=== PATIENT | female | born 1930 | race African-American/Black ===

== ENCOUNTER 2016-12-28 20:26 | Inpatient (IN) | payer MEDICARE, MEDICAID ==
[~2016-12-28] VITALS: Ht 167.6 cm; Wt 44.9 kg
[~2016-12-28 20:26] MED LIST: ACET-3161 PO; ALBU6.7H2 IH; AMLO10TA4; AZIT500T2 PO; COR25; GUAI10SY2 GT; PRAV40TA; TOLT4CAP PO; VALS160T2
[2016-12-28] MEDS ORDERED: ONDANSETRON HCL 4MG/2ML VIAL IV STA (21:39)
[2016-12-28] MEDS ORDERED: MORPHINE SULFATE 4 MG/ML CPJ (NOT FOR IM USE) IV STA (21:39)
[2016-12-28] MEDS ORDERED: MECLIZINE 25MG TABLET PO ONE (21:45)
[2016-12-28 21:55] LABS: CLARITY URINE CLEAR (CLEAR); COLOR URINE YELLOW (YELLOW); GLUCOSE URINE NEGATIVE (NEGATIVE); KETONES URINE NEGATIVE (NEGATIVE); LEUKOCYTE ESTERASE URINE TRACE (NEGATIVE); NITRITE URINE NEGATIVE (NEGATIVE); OCCULT BLOOD URINE 1+ (NEGATIVE); PH URINE 6.5 (4.5-8.0); PROTEIN URINE NEGATIVE (NEGATIVE); SPECIFIC GRAVITY URINE 1.008 (1.005-1.030); UROBILINOGEN URINE 0.2 E.U./dL (0.2-1.0)
[2016-12-28 22:32] LABS: EOSINOPHILS % 0.8 % (0.0-5.0); HEMATOCRIT. 38.1 % (36.0-48.0); HEMOGLOBIN. 12.7 g/dL (12.0-16.0); LYMPHOCYTES % 46.2 % (20.0-50.0); MEAN CORPUSCULAR HEMOGLOBIN 31.2 pg (28.0-32.0); MEAN CORPUSCULAR VOLUME 93.9 fL (81.0-99.0); MEAN PLATELET VOLUME 8.1 fl (7.4-10.4); MONOCYTES % 8.3 % (2.0-8.0); NEUTROPHILS % 43.7 % (40.0-76.0); PLATELET 252 x1000/uL (130-400); RED BLOOD CELL COUNT 4.06 mill/uL (4.2-5.4); RED CELL DISTRIBUTION WIDTH 13.7 % (11.6-14.6)
[2016-12-28 22:40] LABS: D-DIMER 1.71 mg/L FEU (<0.50); INR 1.1; PROTHROMBIN TIME 11.9 sec (9.4-11.6)
[2016-12-28 22:46] LABS: CARBON DIOXIDE 33 mEq/L (21-32); CHLORIDE 104 mEq/L (98-107); TROPONIN I < 0.02 ng/mL (0.00-0.04)
[2016-12-29] MEDS ORDERED: PIPERACILLIN/TAZ 3.375G PREMIX 50 ML IV ONE (00:15)
[2016-12-29] MEDS ORDERED: METRONIDAZOLE 500 MG PREMIX 100 ML IV ONE (00:15)
[2016-12-29 00:35] VITALS: BP 155/65
[2016-12-29] MEDS ORDERED: SODIUM CHLORIDE 0.9% 1,000 ML IV SCH (03:15)
[2016-12-29] MEDS ORDERED: AMLO10TA4 PO (03:54)
[2016-12-29] MEDS ORDERED: ACET-3161 PO (03:57)
[2016-12-29] MEDS ORDERED: ONDANSETRON HCL 4MG/2ML VIAL IV PRN ×2 (04:00→07:45)
[2016-12-29] MEDS ORDERED: LANS15CA12 PO (04:11)
[2016-12-29] MEDS ORDERED: TRAZ-129 PO (04:13)
[2016-12-29] MEDS ORDERED: FOLIC ACID 1 MG,THIAMINE 100 MG,MVI-12 10 ML in DEXTROSE 5% WATER 1000 ML IV SCH ×4 (05:00)
[2016-12-29 05:11] VITALS: BP 141/61
[2016-12-29] MEDS: AMPICILLIN SOD/SULBACTAM NA 1.5 G in SODIUM CHLORIDE 0.9% 50 ML IV SCH ×4 (06:44→23:33)
[2016-12-29] MEDS ORDERED: CLONIDINE 0.1MG TABLET PO PRN (07:45)
[2016-12-29] MEDS ORDERED: DOCUSATE SODIUM 100MG CAPSULE PO PRN (07:45)
[2016-12-29] MEDS ORDERED: MAGNESIUM/ALUMINUM HYDROXIDE/SIMETHICONE 30ML UDC PO PRN (07:45)
[2016-12-29 08:03] VITALS: BP 130/60
[2016-12-29] MEDS ORDERED: MORPHINE SULFATE 2 MG/ML CPJ (NOT FOR IM USE) IV NR (08:08)
[2016-12-29] MEDS ORDERED: NALOXONE HCL 0.4 MG/ML 1ML VIAL IV PRN (08:15)
[2016-12-29] MEDS: AMLODIPINE 10MG TABLET PO SCH (08:27)
[2016-12-29] MEDS: CALCIUM CARBONATE/VITAMIN D3 500MG TABLET PO SCH (08:29)
[2016-12-29] MEDS: ENOXAPARIN 40MG/0.4ML SYR SUBCUT SCH (08:30)
[2016-12-29] MEDS: LACTOBACILLUS GG CAPSULE PO SCH (11:38)
[2016-12-29] MEDS: FLUTICASONE PROPIONATE 50MCG/SPRAY BOTTLE BOTHNSTRLS SCH ×2 (11:38→21:54)
[2016-12-29 11:54] VITALS: BP 142/56
[2016-12-29] MEDS: IPRATROPIUM/ALBUTEROL 0.5-3(2.5)MG/3ML NEB HHN SCH ×3 (12:45→20:15)
[2016-12-29 15:24] LABS: CREATINE KINASE MB FRACTION 1.5 ng/mL (0.5-3.6); TROPONIN I < 0.02 ng/mL (0.00-0.04)
[2016-12-29 15:47] VITALS: BP 128/52
[2016-12-29] MEDS: MORPHINE SULFATE 2 MG/ML CPJ (NOT FOR IM USE) IV PRN (17:40)
[2016-12-29 20:00] VITALS: BP 115/52
[2016-12-29 23:09] LABS: TROPONIN I < 0.02 ng/mL (0.00-0.04)
[2016-12-30] VITALS: BP 125/49
[2016-12-30] MEDS: IPRATROPIUM/ALBUTEROL 0.5-3(2.5)MG/3ML NEB HHN SCH ×6 (01:40→20:23)
[2016-12-30 04:00] VITALS: BP 107/47
[2016-12-30] MEDS ORDERED: FOLIC ACID 1 MG, THIAMINE HCL 100 MG, MVI, ADULT NO.1 10 ML in DEXTROSE 5% WATER 1,000 ML IV SCH ×4 (05:00)
[2016-12-30] MEDS: AMPICILLIN SOD/SULBACTAM NA 1.5 G in SODIUM CHLORIDE 0.9% 50 ML IV SCH ×4 (05:46→23:44)
[2016-12-30 06:36] LABS: BASOPHILS % 0.8 % (0.0-2.0); EOSINOPHILS % 1.1 % (0.0-5.0); HEMATOCRIT. 35.5 % (36.0-48.0); HEMOGLOBIN. 11.8 g/dL (12.0-16.0); LYMPHOCYTES % 44.1 % (20.0-50.0); MEAN CORPUSCULAR HEMOGLOBIN 31.3 pg (28.0-32.0); MEAN CORPUSCULAR VOLUME 94.4 fL (81.0-99.0); MEAN PLATELET VOLUME 8.3 fl (7.4-10.4); MONOCYTES % 12.2 % (2.0-8.0); NEUTROPHILS % 41.8 % (40.0-76.0); PLATELET 244 x1000/uL (130-400); RED BLOOD CELL COUNT 3.76 mill/uL (4.2-5.4); RED CELL DISTRIBUTION WIDTH 13.8 % (11.6-14.6)
[2016-12-30 06:52] LABS: CHLORIDE 100 mEq/L (98-107)
[2016-12-30 07:00] LABS: CARBON DIOXIDE 34 mEq/L (21-32)
[2016-12-30] MEDS: FLUTICASONE PROPIONATE 50MCG/SPRAY BOTTLE BOTHNSTRLS SCH ×2 (09:00→21:08)
[2016-12-30] MEDS: ENOXAPARIN 40MG/0.4ML SYR SUBCUT SCH (09:00)
[2016-12-30] MEDS: CALCIUM CARBONATE/VITAMIN D3 500MG TABLET PO SCH (09:00)
[2016-12-30] MEDS: LACTOBACILLUS GG CAPSULE PO SCH (09:00)
[2016-12-30] MEDS: AMLODIPINE 10MG TABLET PO SCH (09:00)
[2016-12-30 12:00] VITALS: BP 141/60
[2016-12-30] MEDS: MORPHINE SULFATE 2 MG/ML CPJ (NOT FOR IM USE) IV PRN ×2 (12:34→21:48)
[2016-12-30 16:00] VITALS: BP 137/60
[2016-12-30 20:00] VITALS: BP 120/53
[2016-12-30] MEDS ORDERED: POTASSIUM CHLORIDE 20MEQ TABLET SR PO NR (20:00)
[2016-12-30] MEDS: TRAZODONE HCL 50MG TABLET PO SCH (21:08)
[2016-12-31] VITALS: BP 104/40
[2016-12-31] MEDS: IPRATROPIUM/ALBUTEROL 0.5-3(2.5)MG/3ML NEB HHN SCH ×6 (00:07→20:18)
[2016-12-31 04:12] VITALS: BP 124/53
[2016-12-31] MEDS: AMPICILLIN SOD/SULBACTAM NA 1.5 G in SODIUM CHLORIDE 0.9% 50 ML IV SCH ×3 (05:08→17:15)
[2016-12-31 06:29] LABS: BASOPHILS % 0.8 % (0.0-2.0); EOSINOPHILS % 1.2 % (0.0-5.0); HEMATOCRIT. 34.8 % (36.0-48.0); LYMPHOCYTES % 29.6 % (20.0-50.0); MEAN CORPUSCULAR HEMOGLOBIN 32.5 pg (28.0-32.0); MEAN CORPUSCULAR VOLUME 94.4 fL (81.0-99.0); MEAN PLATELET VOLUME 8.1 fl (7.4-10.4); MONOCYTES % 11.4 % (2.0-8.0); PLATELET 230 x1000/uL (130-400); RED BLOOD CELL COUNT 3.69 mill/uL (4.2-5.4); RED CELL DISTRIBUTION WIDTH 13.3 % (11.6-14.6)
[2016-12-31 07:05] LABS: CHLORIDE 103 mEq/L (98-107)
[2016-12-31 07:15] LABS: CARBON DIOXIDE 31 mEq/L (21-32)
[2016-12-31 07:29] VITALS: BP 135/58
[2016-12-31] MEDS: CALCIUM CARBONATE/VITAMIN D3 500MG TABLET PO SCH (08:55)
[2016-12-31] MEDS: AMLODIPINE 10MG TABLET PO SCH (08:56)
[2016-12-31] MEDS: FLUTICASONE PROPIONATE 50MCG/SPRAY BOTTLE BOTHNSTRLS SCH ×2 (08:56→21:36)
[2016-12-31] MEDS: LACTOBACILLUS GG CAPSULE PO SCH (08:56)
[2016-12-31] MEDS: ENOXAPARIN 30MG/0.3ML SYR SUBCUT SCH (09:00)
[2016-12-31] MEDS: [UNRECOGNIZED DRUG - REMARK] IV SCH ×5 (09:01)
[2016-12-31 11:41] VITALS: BP 136/52
[2016-12-31] MEDS: POTASSIUM CHLORIDE 20MEQ TABLET SR PO SCH ×2 (15:04→16:12)
[2016-12-31 15:23] VITALS: BP 135/56
[2016-12-31 20:42] VITALS: BP 135/54
[2016-12-31] MEDS: TRAZODONE HCL 50MG TABLET PO SCH (21:36)
[2017-01-01] MEDS: IPRATROPIUM/ALBUTEROL 0.5-3(2.5)MG/3ML NEB HHN SCH ×4 (00:12→11:43)
[2017-01-01 00:17] VITALS: BP 133/54
[2017-01-01] MEDS: AMPICILLIN SOD/SULBACTAM NA 1.5 G in SODIUM CHLORIDE 0.9% 50 ML IV SCH ×2 (00:58→05:44)
[2017-01-01 04:31] VITALS: BP 131/49
[2017-01-01 06:24] LABS: BASOPHILS % 0.6 % (0.0-2.0); EOSINOPHILS % 1.6 % (0.0-5.0); HEMATOCRIT. 34.4 % (36.0-48.0); HEMOGLOBIN. 11.5 g/dL (12.0-16.0); LYMPHOCYTES % 33.8 % (20.0-50.0); MEAN CORPUSCULAR HEMOGLOBIN 31.5 pg (28.0-32.0); MEAN CORPUSCULAR VOLUME 94.5 fL (81.0-99.0); MEAN PLATELET VOLUME 8.3 fl (7.4-10.4); MONOCYTES % 11.3 % (2.0-8.0); NEUTROPHILS % 52.7 % (40.0-76.0); PLATELET 236 x1000/uL (130-400); RED BLOOD CELL COUNT 3.65 mill/uL (4.2-5.4); RED CELL DISTRIBUTION WIDTH 13.6 % (11.6-14.6)
[2017-01-01 07:17] LABS: CHLORIDE 104 mEq/L (98-107)
[2017-01-01 07:25] LABS: CARBON DIOXIDE 32 mEq/L (21-32)
[2017-01-01 08:00] VITALS: BP 125/52
[2017-01-01] MEDS ORDERED: MVI, ADULT NO.1 10 ML, FOLIC ACID 1 MG, THIAMINE HCL 100 MG in SODIUM CHLORIDE 0.9% 1,0... IV SCH ×4 (09:00)
[2017-01-01] MEDS: LACTOBACILLUS GG CAPSULE PO SCH (09:08)
[2017-01-01] MEDS: AMLODIPINE 10MG TABLET PO SCH (09:08)
[2017-01-01] MEDS: CALCIUM CARBONATE/VITAMIN D3 500MG TABLET PO SCH (09:09)
[2017-01-01] MEDS: POTASSIUM CHLORIDE 20MEQ TABLET SR PO SCH (09:09)
[2017-01-01] MEDS: ENOXAPARIN 30MG/0.3ML SYR SUBCUT SCH (09:10)
[2017-01-01] MEDS: [UNRECOGNIZED DRUG - REMARK] IV SCH ×5 (09:24)
[2017-01-01 11:42] VITALS: BP 125/52
[2017-01-01 12:05] VITALS: BP 138/54
== END 2017-01-01 15:15 | disposition home or self-care (01) | DRG 392 ==
LOC: ER 21:39 → ENRESERV 23:35 → 6WST 12-29 00:09 → EDBEDREQ 12-29 00:13
PROVIDERS: ADMIT Internal Medicine; ATTEND Internal Medicine
DX: K57.30 Diverticulosis of large intestine without perforation or abscess without bleeding (principal); J44.9 Chronic obstructive pulmonary disease, unspecified; N39.0 Urinary tract infection, site not specified; E78.00 Pure hypercholesterolemia, unspecified; E87.6 Hypokalemia; I10 Essential (primary) hypertension; M54.5 Low back pain; G89.29 Other chronic pain; Z90.49 Acquired absence of other specified parts of digestive tract; Z87.891 Personal history of nicotine dependence
CPT/HCPCS: 36415; 70450; 71010; 74176; 74181; 80053; 81001; 82270; 82553; 83605; 83690; 83880; 84484; 85025; 85379; 85610; 85651; 87015; 87040; 87045; 87427; 87449; 87493; 93005; 93306; 94640; 94664; 96374; 96375; 97162; 99285; J0295; J1650; J2270; J2405; J3411; J3480; J3490; J7030; J7040; J7050; J7070; J7620; J8597

== ENCOUNTER → 2017-05-02 | Outpatient (CLI) | payer MEDICARE, MEDICAID ==
[~2017-05-02] MED LIST changes: -ALBU6.7H2 IH; +ALBU6.7H3 IH; +AMLO10TA4 PO; +LANS15CA12 PO; +TRAZ-129 PO
== END | disposition home or self-care (01) ==
LOC: US 09:23
PROVIDERS: ATTEND Internal Medicine Gastroenterology
DX: N18.6 End stage renal disease (principal); K76.0 Fatty (change of) liver, not elsewhere classified
CPT/HCPCS: 76700

== ENCOUNTER 2018-03-23 19:42 | Emergency (ER) | payer MEDICARE, MEDICAID ==
[~2018-03-23] VITALS: Ht 167.6 cm; Wt 46.0 kg
[~2018-03-23 19:42] MED LIST changes: -ALBU6.7H3 IH; +ALBU6.7H9 IH; -TRAZ-129 PO; +TRAZ-212 PO
[2018-03-23 19:54] VITALS: BP 153/104
== END 2018-03-24 00:43 | disposition left against medical advice (07) ==
LOC: ER 19:42
DX: Z53.21 Procedure and treatment not carried out due to patient leaving prior to being seen by health care provider (principal); I10 Essential (primary) hypertension; Z90.49 Acquired absence of other specified parts of digestive tract
CPT/HCPCS: 93005